=== PATIENT | female | born 1955 | race Caucasian/White ===

== ENCOUNTER 2020-12-24 18:09 | Inpatient (IN) | payer OTHER, SELFPAY ==
[2020-12-24 18:50] LABS: #Basophils 0.1 thou/uL (0.0-0.2); #Eosinphils 0.1 thou/uL (0.0-0.7); #Lymphocytes 2.1 thou/uL (1.20-3.40); #Monocytes 0.7 thou/uL (0.11-0.59); #Neutrophils 7.2 thou/uL (1.40-6.50); %Basophils 1.4 % (0.0-1.0); %Eosinophils 0.5 % (0.0-10.0); %Lymphocytes 20.7 % (21.0-51.0); %Monocytes 7.1 % (0.0-10.0); %Neutrophils 70.3 % (42.0-75.0); Hemoglobin 14.3 g/dL (12.0-16.0); Mean Corpuscular HGB CONC 33.7 g/dL (32.0-36.0); Mean Corpuscular Hemoglobin 33.9 pg (27.0-31.0); Mean Platelet Volume 7.3 fL (7.4-10.4); Platelet Count 332 thou/uL (130-400); RBC Distribution Width 13.4 % (11.5-14.5); Red Blood Cell (RBC) Count 4.21 mill/uL (4.20-5.40); White Blood Cell (WBC) Count 10.3 thou/uL (4.8-10.8)
[2020-12-24 19:00] LABS: Lactic Acid 3.5 mmol/L (0.5-2.2)
[2020-12-24] MEDS ORDERED: Multivitamins, Adult 10 ML, Thiamine HCl 100 MG, Folic Acid 1 MG in Dextrose 5 %-0.45 %... IV SCH (19:00)
[2020-12-24 19:06] LABS: ALT (SGPT) 76 U/L (8-55); AST (SGOT) 80 U/L (5-34); Albumin 4.6 g/dL (3.4-4.8); Alcohol 260 mg/dL (Less than 10); Alkaline Phosphatase 47 U/L (40-110); Anion Gap 21 mmol/L (10-20); BUN (Urea Nitrogen) 6 mg/dL (9.8-20.1); Bilirubin, Total 0.8 mg/dL (0.2-1.2); Calc. Creatinine Clearance 0 mL/min (70-130); Calcium 10.3 mg/dL (7.8-10.44); Carbon Dioxide 22 mmol/L (23-31); Chloride 92 mmol/L (98-107); Glucose 120 mg/dL (80-115); Potassium 4.2 mmol/L (3.5-5.1); Protein, Total 8.6 g/dL (5.8-8.1); Sodium 131 mmol/L (136-145)
[2020-12-24 19:44] LABS: Bacteria/HPF None Seen HPF (None Seen); Bilirubin Negative (Negative); Blood, Urine Negative (Negative); Clarity Clear (Clear); Glucose, Urine (Dipstick) Normal (Negative); Ketone, Urine Negative (Negative); Leukocyte Negative Leu/uL (Negative); Nitrite Negative (Negative); Protein, Urine (Dipstick) Negative (Neg-Trace); RBC/HPF None Seen HPF (0-3); Specific Gravity, Urine 1.003 (1.002-1.036); Squamous Epithelial None Seen HPF (0-3); Urobilinogen Normal mg/dL (Less than 2); WBC/HPF None Seen HPF (0-3); pH, Urine 6.5 (5.0-9.0)
[2020-12-24] MEDS ORDERED: Ondansetron PF 4 MG/2 ML Vial IVP PRN (21:14)
[2020-12-24] MEDS ORDERED: Acetaminophen 325 MG TAB PO PRN (21:14)
[2020-12-24] MEDS ORDERED: Ondansetron ODT 4 MG TAB PO PRN (21:14)
[2020-12-24] MEDS ORDERED: Acetaminophen 650 MG Suppository PR PRN (21:14)
[2020-12-24 22:57] LABS: Lactic Acid 2.7 mmol/L (0.5-2.2)
[2020-12-24] MEDS ORDERED: Diazepam 5 MG TAB PO PRN (23:12)
[2020-12-24] MEDS ORDERED: Diazepam 5 MG TAB PO SCH (23:15)
[2020-12-25] MEDS ORDERED: Diazepam 5 MG TAB PO PRN (04:00)
[2020-12-25] MEDS ORDERED: Sodium Chloride 0.9% 500 ML IV SCH (07:00)
[2020-12-25 07:56] LABS: #Eosinphils 0.1 thou/uL (0.0-0.7); #Lymphocytes 2.3 thou/uL (1.20-3.40); #Monocytes 0.8 thou/uL (0.11-0.59); #Neutrophils 6.4 thou/uL (1.40-6.50); %Basophils 0.4 % (0.0-1.0); %Eosinophils 0.8 % (0.0-10.0); %Lymphocytes 24.2 % (21.0-51.0); %Monocytes 7.9 % (0.0-10.0); %Neutrophils 66.7 % (42.0-75.0); Hemoglobin 13.1 g/dL (12.0-16.0); Mean Corpuscular HGB CONC 33.1 g/dL (32.0-36.0); Mean Corpuscular Hemoglobin 33.5 pg (27.0-31.0); Mean Platelet Volume 7.7 fL (7.4-10.4); Platelet Count 255 thou/uL (130-400); RBC Distribution Width 13.4 % (11.5-14.5); Red Blood Cell (RBC) Count 3.92 mill/uL (4.20-5.40); White Blood Cell (WBC) Count 9.5 thou/uL (4.8-10.8)
[2020-12-25 08:10] LABS: Lactic Acid 1.2 mmol/L (0.5-2.2)
[2020-12-25 08:16] LABS: ALT (SGPT) 62 U/L (8-55); AST (SGOT) 62 U/L (5-34); Albumin 3.6 g/dL (3.4-4.8); Alkaline Phosphatase 40 U/L (40-110); Bilirubin, Direct 0.5 mg/dL (0.1-0.3); Protein, Total 6.6 g/dL (5.8-8.1)
[2020-12-25 08:21] LABS: Anion Gap 15 mmol/L (10-20); BUN (Urea Nitrogen) 8 mg/dL (9.8-20.1); Calc. Creatinine Clearance 55 mL/min (70-130); Calcium 8.4 mg/dL (7.8-10.44); Carbon Dioxide 25 mmol/L (23-31); Chloride 97 mmol/L (98-107); Glucose 106 mg/dL (80-115); Potassium 3.8 mmol/L (3.5-5.1); Sodium 133 mmol/L (136-145)
[2020-12-25] MEDS: Magnesium Oxide 400 MG TAB PO SCH (08:36)
[2020-12-25] MEDS ORDERED: Multivitamin W/ Minerals 1 TAB PO SCH (09:00)
[2020-12-25] MEDS ORDERED: Thiamine 100 MG TAB PO SCH (09:00)
[2020-12-25] MEDS ORDERED: Folic Acid 1 MG TAB PO SCH (09:00)
[2020-12-25] MEDS ORDERED: chlordiazePOXIDE HCl 5 MG CAP PO PRN (13:54)
[2020-12-25 15:29] LABS: Thyroid Stimulating Hormone 3.1596 uIU/mL (0.35-4.94)
[2020-12-25 15:31] LABS: Syphilis Antibody Nonreactive (Nonreactive); Syphilis Antibody Index 0.06 S/CO (<1.00 Non-Reactive)
[2020-12-25 15:35] LABS: Vitamin B12 495 pg/mL (211-911)
[2020-12-25 15:46] LABS: HBCM Index 0.06 S/CO (0-0.79); HBSAg Index 0.17 S/CO (0-0.99); Hep A IgM AB Non-Reactive (NonReactive); Hep A IgM S/CO 0.11 S/CO (0-0.79); Hep B Surf Ag Non-Reactive S/CO (NonReactive); Hep C IgG Ab Non-Reactive (NonReactive); Hep C Index 0.08 S/CO (0-0.79); Hepatitis B Core IgM Abs Non-Reactive (NonReactive)
[2020-12-25] MEDS: Multivitamins, Adult 10 ML, Folic Acid 1 MG, Thiamine HCl 100 MG in Dextrose 5 %-0.45 %... IV SCH (16:11)
[2020-12-25 20:02] LABS: Amphetamine Not Detected (NotDetected); Barbiturates Screen Not Detected (NotDetected); Benzodiazepine Screen Detected (NotDetected); Cocaine Metabolite Screen Not Detected (NotDetected); Methadone Not Detected (NotDetected); Methamphetamine Not Detected (NotDetected); Opiate Screen Not Detected (NotDetected); Oxycodone Screen Not Detected (NotDetected); Phencyclidine (PCP) Not Detected (NotDetected); THC/Cannabinoid Screen Not Detected (NotDetected); Tricyclic Screen Not Detected (NotDetected)
[2020-12-26] MEDS: Magnesium Oxide 400 MG TAB PO SCH (08:11)
[2020-12-26 08:58] LABS: SARS-CoV-2 PCR by NAA Not Detected (NotDetected)
[2020-12-26] MEDS: Nicotine 14 MG PATCH TD SCH (11:57)
[2020-12-26] MEDS: Multivitamins, Adult 10 ML, Folic Acid 1 MG, Thiamine HCl 100 MG in Dextrose 5 %-0.45 %... IV SCH (14:23)
[2020-12-27 06:12] VITALS: BMI 17.8
[2020-12-27] MEDS: Magnesium Oxide 400 MG TAB PO SCH (08:50)
[2020-12-27] MEDS: Nicotine 14 MG PATCH TD SCH (11:43)
[2020-12-27 12:18] VITALS: BP 105/68; TEMP 98.2
[2020-12-27] MEDS: Multivitamins, Adult 10 ML, Folic Acid 1 MG, Thiamine HCl 100 MG in Dextrose 5 %-0.45 %... IV SCH (15:23)
== END 2020-12-27 17:41 | disposition home or self-care (01) | DRG 897 ==
LOC: ERS 18:09 → SJJU 19:54
PROVIDERS: ADMIT Student in an Organized Health Care Education/Training Program; ATTEND Hospitalist
PROC: HZ2ZZZZ Detoxification Services for Substance Abuse Treatment (ICD-10-PCS; principal; 2020-12-24)
DX: F10.229 Alcohol dependence with intoxication, unspecified (principal); E87.1 Hypo-osmolality and hyponatremia; E87.2 Acidosis; Z20.822 Contact with and (suspected) exposure to COVID-19; G31.2 Degeneration of nervous system due to alcohol; R74.01 Elevation of levels of liver transaminase levels; E86.0 Dehydration; J44.9 Chronic obstructive pulmonary disease, unspecified; F17.210 Nicotine dependence, cigarettes, uncomplicated; F41.8 Other specified anxiety disorders; Y90.8 Blood alcohol level of 240 mg/100 ml or more; Z79.899 Other long term (current) drug therapy
CPT/HCPCS: 36415; 70450; 76705; 80048; 80053; 80074; 80076; 80306; 80307; 81001; 82140; 82607; 82746; 83605; 84443; 85025; 86780; J3411; J3475; J3490; J7030; J7042; U0003; U0005